=== PATIENT | female | born 1935 | race Caucasian/White ===

== ENCOUNTER 2017-01-06 14:46 | Emergency (ER) | payer OTHER ==
[~2017-01-06] VITALS: Ht 167.6 cm; Wt 61.7 kg
[~2017-01-06 14:46] MED LIST: DICLOFENAC PO; GLUCOVANCE 2.5/1 TA1 PO; LIPITOR PO; LISINOPRIL PO; LISINOPRIL30 MG PO; ZOCOR20 MG PO; [UNRECOGNIZED DRUG - REMARK]
[2017-01-06 17:09] LABS: BASOPHIL# 0.1 X10e3 (0-0.3); BASOPHIL% 0.9 % (0-2.5); EOSINOPHIL# 0.1 X10e3 (0-0.7); EOSINOPHIL% 0.9 % (0.0-7.0); HEMATOCRIT 35.5 % (35.0-45.0); HEMOGLOBIN 11.8 gm/dL (12.0-16.0); LYMPHOCYTE# 0.9 X10e3 (1.0-3.5); LYMPHOCYTE% 16.4 % (17.0-45.0); MEAN CELL VOLUME 92.2 FL (83-96); MEAN CORPUSCULAR HEMOGLOBIN 30.6 PG (28-34); MEAN CORPUSCULAR HGB CONC 33.1 g/dL (30-36); MEAN PLATELET VOLUME 7.4 FL (6.5-11.5); MONOCYTE# 0.5 X10e3 (0-1.0); MONOCYTE% 9.4 % (3.0-12.0); NEUTROPHIL% 72.4 % (40-75); PLATELET COUNT 328 X10e3 (140-420); RED BLOOD COUNT 3.85 X10e (3.90-5.30); RED CELL DISTRIBUTION WIDTH 13.3 % (11.0-15.5); WHITE BLOOD COUNT 5.5 X10e3 (4.0-10.5)
[2017-01-06 17:21] LABS: DIFF IND NO
[2017-01-06 17:29] LABS: ALBUMIN SERUM 3.8 g/dL (3.5-5.0); BILIRUBIN,TOTAL 0.3 mg/dL (0.2-2.0); BUN/CREATININE RATIO 26.92; CALCIUM SERUM 9.3 mg/dL (8.4-10.2); CREATININE SERUM 1.3 mg/dL (0.6-1.4); GLOM FILT RATE Estimated 38.7 mL/min (>60); POTASSIUM 4.2 mmol/L (3.5-5.1); PROTEIN TOTAL SERUM 6.8 g/dL (6.0-8.3)
== END 2017-01-06 18:42 | disposition home or self-care (01) ==
LOC: CED 14:46
PROVIDERS: Emergency Medicine
DX: S50.312A Abrasion of left elbow, initial encounter (principal); E11.65 Type 2 diabetes mellitus with hyperglycemia; W01.0XXA Fall on same level from slipping, tripping and stumbling without subsequent striking against object, initial encounter; Y92.9 Unspecified place or not applicable
CPT/HCPCS: 36415; 80053; 85025; 99283

== ENCOUNTER 2017-01-30 12:31 | Observation (INO) | payer OTHER ==
[~2017-01-30] VITALS: Ht 162.6 cm; Wt 49.0 kg
--- NOTE | ~2017-01-30 | EKG ---
PATIENT: BO MALCOLM UNIT #: [id number] Ventricular Rate: 72 BPM Atrial Rate: 72 BPM P-R Interval: 170 ms QRS Duration: 70 ms Q-T Interval: 384 ms QTC Calculation(Bezet): 420 ms P [place]: -17 degrees Calculated R [place]: -20 degrees Calculated T [place]: 33 degrees Diagnosis Line: Normal sinus rhythm Diagnosis Line: Normal ECG Diagnosis Line: When compared with ECG of 04-JUL-2014 21:38, Diagnosis Line: Nonspecific T wave abnormality no longer evident Diagnosis Line: in Lateral leads Diagnosis Line: Confirmed by JUSTIN CHAMPAGNE MD ([id number]) on 02/01/2017 Diagnosis Line: 2:52:30 PM INTERPRETING MD: HISAN MORRISON
--- NOTE | ~2017-01-30 | A ---
[facility] Nutrition Therapy DATE: 01/31/17 Patient: BO MALCOLM Physician: ABDI Address: [address] Room/Bed: [address] [place] [address], Zip: [place] [address] Admit Date: 01/30/17 Date of : 37 Height: 5 4 Weight: 108 49 NUTRITIONAL ASSESSMENT: REASON: LOW BMI PT IS 81 Y.O. FEMALE ADMITTED FOR WEAKNESS, FREQUENT FALLS PMH: DM, HTN, HLD Anthropometrics: 5'6" (PER RD OBSERVATION), WT: 108# (49 KG), BMI: 17.4, 83%IBW Labs: GLU: 121, BUN: 49, A1c: 6.2 (2011), GFR: 38.7 Meds: NOVOLOG, NACL I/O & Bowel function: NOT AVAILABLE Skin Integrity: NO KNOWN SKIN ISSUES; DRY SKIN NOTED ALL OVER BODY Estimated Nutrition Needs: INCREASED NEEDS 2' PT UNDERWEIGHT, FAIR PO INTAKE AND APPETITE, WEIGHT LOSS NOTED Assessment: CHART REVIEWED AND EVENTS NOTED. PT SEEN FOR LOW BMI (UNDERWEIGHT STATUS). PT ANXIOUS AND SLIGHTLY CONFUSED AT TIME OF VISIT REPORTING "EATING WELL IN-HOUSE" BUT ADDS DECREASED PO INTAKE AND APPETITE AT HOME. PER RN AND CHART, PT FOUND W/FECES AND BEDBUGS PRIOR TO ADMISSION (?HOME SITUATION). PT REPORTS WEIGHT LOSS BUT UNABLE TO KNOW AMOUNT AND TIME FRAME (PER [employer], PT WEIGHED ~136# IN DECEMBER 2016?). THIS RD ENCOURAGED ADEQUATE KCAL AND PROTEIN INTAKE, PT AGREED TO GLUCERNA SHAKE & ENSURE PUDDING DAILY. PT REPORTED NO DIET QUESTIONS AT THIS TIME. RD TO FOLLOW. SEE RECOMMENDATIONS BELOW. Dx: UNDERWEIGHT R/T DECREASED PO INTAKE/APPETITE, HOME SITUATION, LIFESTYLE AEB BMI OF 17.4, 83%IBW, WEIGHT LOSS NOTED. Intervention: 1. HEALTHY HEART DIET 2. GLUCERNA SHAKE W/LUNCH 3. ENSURE PUDDING W/DINNER Monitoring, Evaluation and Goals: 1. ORAL INTAKE; CONSUME/TOLERATE >50% OF MEALS AND SUPPLEMENTS 2. WEIGHTS; PROMOTE GRADUAL WEIGHT GAIN TOWARDS HEALTHY BMI; PREVENT FURTHER WEIGHT LOSS 3. LABS; GLU, BUN MONITOR: -PO INTAKE/APPETITE -WEIGHTS [facility] Nutrition Therapy DATE: 01/31/17 Patient: BO MALCOLM Physician: ABDI Address: [address] Room/Bed: [address] [place] [address], Zip: [place] [address] Admit Date: 01/30/17 Date of : 37 Height: 5 4 Weight: 108 49 -SUPPLEMENT INTAKE Recommendations: 1. PLEASE ORDER KAREN GLUCERNA SHAKE W/LUNCH MEAL DAILY 2. PLEASE ORDER KAREN ENSURE PUDDING W/DINNER MEAL DAILY 3. APPRECIATE FAMILY AND STAFF TO ENCOURAGE ADEQUATE PO INTAKE. PROVIDE ASSISTANCE W/ORDERING MEALS NEEDED -CHANGE DIET TO REGULAR, IF PT CONSUMES LESS THAN 50% OF MEALS 4. RECOMMEND TO CONSULT METROLOGY ENGINEER FOR HOME SITUATION RD WILL F/U PER PROTOCOL PT IS MODERATELY COMPROMISED Respectfully, JUAN CARLOS CARTWRIGHT MS, RD, LD [employer] [facility] [employer] cc: client file
--- NOTE | ~2017-01-30 | CR72 ---
[facility] A Service of [facility] RADIOLOGY TEXT RESULTS PATIENT: BO MALCOLM LOCATION: [facility] [id number] : 36 UNIT #: [id number] AGE: [address]: Yue Juan MD SEX: F ORDER DR: [id number] [facility] [address] [place], [place] [address] [id number] MR#: [id number] Acc #: [id number] NAME: BO MALCOLM : 1935 SEX: F STUDY DATE/TIME: 01/30/2017 14:46 UNIT: [id number] ROOM: [facility] STUDY DESCRIPTION: CR Chest Single View Portable Attending Physician: Marta Welch M.D. Ordering Physician: Jose Armando Latham M.D. Primary Care Physician: Judith Laureano A.P.R.N. MEDICAL IMAGING REPORT This report is preliminary unless electronic signature is present EXAM Portable chest x-ray 01/30/2017 HISTORY Recent fall, weakness. FINDINGS AP right anterior oblique view of the chest is presented. Comparison 07/04/2014. Mild dextroscoliosis centered at mid thoracic spine slightly more pronounced than on prior study. Heart and mediastinum normal in size and contour given obliquity. The lungs are well inflated. Multiple bilateral densely calcified granulomata unchanged. There is no indication of acute infectious or inflammatory disease, pleural effusion or pneumothorax. There is no suspicious nodule. Complete fracture anterolateral left seventh rib. Distal fracture fragment displaced laterally by about 3 mm. No other definite acute fractures seen on these images. IMPRESSION 1. There is a complete transverse fracture of the anterolateral left seventh rib. The distal fracture fragment is displaced laterally by about 3 mm. No other definite acute bony abnormality is seen. There are degenerative changes in the spine and there is mild dextroscoliosis centered at the mid thoracic spine slightly more pronounced than in 2015. 2. Heart and mediastinum normal in size and contour. 3. The lungs are well inflated without acute abnormality. Multiple bilateral calcified granulomata are stable. No pleural effusion. No pneumothorax. Dictated by... [facility] A Service of [facility] RADIOLOGY TEXT RESULTS PATIENT: BO MALCOLM LOCATION: [place] [address] : 37 UNIT #: [id number] AGE: [address]: Yue Juan MD SEX: F ORDER DR: Cory Griggs M.D. THIS IS AN ELECTRONICALLY VERIFIED REPORT Cory Griggs M.D. at 02/02/2017 5:45 PM GEORGIANA/lukas TD: 01/31/2017 03:11 JOB #: [id number] MEDICAL IMAGING REPORT Page 1 of 1 COPY
--- NOTE | ~2017-01-30 | HP ---
Unit #: [id number] #: [id number] Patient: BO MALCOLM [id number] [address] [place], [place] [address] [id number] I MR#: [id number] NAME: BO MALCOLM ROOM: 321 Age: 81 Sex: F Admission Date: 01/30/2017 : 1935 Attending Physician: Aaron Welch M.D. Primary Care Physician: Judith Laureano A.P.R.N. HISTORY AND PHYSICAL CHIEF COMPLAINT Weakness. HISTORY OF PRESENT ILLNESS The patient is an 81-year-old female with a history of diabetes and hypertension, brought to the emergency room by APS for the weakness. The patient lives with her grandson and granddaughter. The patient's has been recently admitted to the custodial. The patient stated that the patient has been feeling weak and has recurrent falls. The patient's neighbors called the EMS for the questionable neglect. The EMS called APS because the patient was found in the feces and with the bedbugs and the APS brought to the emergency room for the further evaluation. The patient was found to be very dehydrated and with the weakness and was found to be with the bedbugs. The patient is being admitted for the above reasons. The patient is a poor historian and the history is obtained by speaking to the ER physician and the RN at the bedside. No further history is available. PAST MEDICAL HISTORY History of diabetes mellitus, hypertension, hyperlipidemia. PAST SURGICAL HISTORY C-sections and cataract extraction. ALLERGIES No known drug allergies. HOME MEDICATION From the records the patient has been on lisinopril and the glipizide and Zocor and Claritin. FAMILY HISTORY Positive for diabetes mellitus. SOCIAL HISTORY The patient lives with her grandkids. She is a lifelong nonsmoker and does not drink alcohol. REVIEW OF SYMPTOMS Unable to obtain as the patient is not able to provide any history other than complaining of the recurrent falls and the weakness and the patient stated that the patient had a fall at home. Unit #: [id number] #: [id number] Patient: BO MALCOLM PHYSICAL EXAMINATION GENERAL APPEARANCE: On examination the patient is lying on a bed, not in acute distress. VITAL SIGNS: Temperature is 97.6, pulse 84, respiratory rate 18, blood pressure 135/113, sating 99% at room air. HEENT: Head atraumatic and normocephalic. Pupils equal, round and reacting to light and accommodation. Dry mucous membrane. NECK: Supple. LUNGS: Decreased air entry at the bases. HEART: Regular rate and rhythm. ABDOMEN: Soft, positive bowel sounds. EXTREMITIES: Weakness. DIAGNOSTIC STUDIES LABORATORY DATA: WBC is 7.8, hemoglobin is 10.9, hematocrit 32.3, platelet is 283, troponin less than 0.05, sodium 137, potassium 4.7, chloride 104, bicarb 26, glucose 152, BUN 52, creatinine 1, AST 24, ALT 14, alkaline phosphatase 83, albumin is 4 and UA shows trace protein. IMAGING: Chest x-ray shows there is a complete transverse fracture of the anterolateral left seventh rib. No consolidations or infiltrates or effusions. ASSESSMENT 1. Weakness. 2. Recurrent fall. 3. Left rib fracture. PLAN 1. Plan to admit the patient to the observation. 2. Continue the supportive care. 3. Continue with the sliding scale and resume the home medications. 4. The patient will be seen by the OT/PT and the case management. 5. Further recommendations will follow as more lab results are available. Dictated by Emir Pardo TD: 01/30/2017 23:04 JOB #: [id number] HISTORY AND PHYSICAL Page 1 of 1 X AARON WELCH MD X HISTORY AND PHYSICAL
--- NOTE | ~2017-01-30 | DS ---
Unit #: [id number] #: [id number] Patient: BO MALCOLM [id number] [address] [address] [id number] I MR#: [id number] NAME: BO MALCOLM ROOM: [facility] Age: 81 Sex: F Admission Date: 01/30/2017 : 1935 Discharge Date: Attending Physician: Yue Juan M.D. Primary Care Physician: Kavin RennerP.RAzalia DISCHARGE SUMMARY DISCHARGE DIAGNOSES 1. Fever, likely from atelectasis from rib fracture. 2. Status post recurrent fall. 3. Left rib fracture. 4. Weakness. 5. Diabetes mellitus type 2, uncontrolled. 6. Hypertension. 7. Hyperlipidemia. 8. Acute kidney injury. 9. Vitamin B12 deficiency. CONSULTATIONS None. PROCEDURES None. DIAGNOSTIC TESTING LAB DATA: Glucose 133. Blood culture negative. WBC 6.5, hemoglobin 8.8, platelets 235. Vitamin B12 level is 105. TSH 0.72. IMAGING: Chest x-ray shows complete transverse fracture of the anterolateral left 7th rib. Distal fragment is displaced laterally about 3 mm. No other definite acute findings. ALLERGIES None. DISCHARGE MEDICATIONS 1. Tylenol 650 q.6 p.r.n. pain. 2. Colace 100 p.o. daily. 3. NovoLog low-dose sliding scale a.c. and h.s. 4. Ferrous gluconate 324 p.o. daily. 5. Vitamin B12 - 1,000 mcg subcu every daily. HOSPITALIZATION COURSE An 81 year old admitted because of fall and generalized weakness. Fever x1, likely from atelectasis from rib fracture. Fall with 7th rib fracture with generalized weakness. Patient seen by physical therapy. They recommend rehab. Patient will be discharged to rehab. Continue with Tylenol for pain for rib fracture. Unit #: [id number] #: [id number] Patient: BO MALCOLM Acute kidney injury on admission. Mild. Patient received IV fluids. Vitamin B12 deficiency. Patient was given B12 injections. DISCHARGE PLAN The patient will be discharged to rehab. Dictated by... Emir Elizalde TD: 02/03/2017 14:14 JOB #: [id number] DISCHARGE SUMMARY Page 1 of 1 X Yue Juan MD DISCHARGE SUMMARY
[2017-01-30 14:34] LABS: BASOPHIL# 0.1 X10e3 (0-0.3); BASOPHIL% 0.6 % (0-2.5); EOSINOPHIL# 0.2 X10e3 (0-0.7); EOSINOPHIL% 2.1 % (0.0-7.0); HEMATOCRIT 32.3 % (35.0-45.0); HEMOGLOBIN 10.9 gm/dL (12.0-16.0); LYMPHOCYTE# 1.4 X10e3 (1.0-3.5); LYMPHOCYTE% 17.9 % (17.0-45.0); MEAN CELL VOLUME 93.2 FL (83-96); MEAN CORPUSCULAR HEMOGLOBIN 31.5 PG (28-34); MEAN CORPUSCULAR HGB CONC 33.8 g/dL (30-36); MEAN PLATELET VOLUME 6.9 FL (6.5-11.5); MONOCYTE# 0.7 X10e3 (0-1.0); MONOCYTE% 8.7 % (3.0-12.0); NEUTROPHIL# 5.5 X10e3 (1.5-7.1); NEUTROPHIL% 70.7 % (40-75); PLATELET COUNT 283 X10e3 (140-420); RED BLOOD COUNT 3.47 X10e (3.90-5.30); RED CELL DISTRIBUTION WIDTH 13.1 % (11.0-15.5); WHITE BLOOD COUNT 7.8 X10e3 (4.0-10.5)
[2017-01-30 14:39] LABS: DIFF IND NO
[2017-01-30 15:02] LABS: ALKALINE PHOSPHATASE 83 U/L (32-92); ALT (SGPT) 14 U/L (10-40); AST (SGOT) 24 U/L (10-42); BILIRUBIN,TOTAL 0.4 mg/dL (0.2-2.0); BLOOD UREA NITROGEN 52 mg/dL (9-23); CALCIUM SERUM 8.9 mg/dL (8.4-10.2); CARBON DIOXIDE 26 mmol/L (22-31); CHLORIDE 104 mmol/L (100-111); GLOM FILT RATE Estimated 53.2 mL/min (>60); GLUCOSE FASTING 152 mg/dL (70-110); POTASSIUM 4.7 mmol/L (3.5-5.1); SODIUM 137 mmol/L (135-145)
[2017-01-30 15:05] LABS: POC - CKMB 1.3 ng/mL (0.0-7.9); POC - TROPONIN <0.05 ng/mL (<=0.05)
[2017-01-30 15:07] LABS: BILIRUBIN, DIRECT <0.1 mg/dL (0.0-0.2); BILIRUBIN,INDIRECT 0.3 mg/dL (0.0-0.9)
[2017-01-30 15:47] LABS: URINE SOURCE CLEAN CATCH
[2017-01-30 15:55] LABS: URINE APPEARANCE CLEAR; URINE BILIRUBIN NEG (NEG); URINE BLOOD NEG (NEG); URINE COLOR YELLOW; URINE GLUCOSE NEG (NEG); URINE KETONE NEG (NEG); URINE LEUKOCYTE ESTERASE NEG (NEG); URINE NITRATE NEG (NEG); URINE PROTEIN TRACE (NEG); URINE SPECIFIC GRAVITY 1.025 (1.003-1.035); URINE UROBILINOGEN 0.2 MG/DL (NEG)
[2017-01-30 16:02] LABS: CULTURE INDICATED? NO
[2017-01-31 05:32] LABS: HEMATOCRIT 25.7 % (35.0-45.0); MEAN CELL VOLUME 92.2 FL (83-96); MEAN CORPUSCULAR HEMOGLOBIN 31.9 PG (28-34); MEAN CORPUSCULAR HGB CONC 34.6 g/dL (30-36); MEAN PLATELET VOLUME 7.4 FL (6.5-11.5); RED BLOOD COUNT 2.79 X10e (3.90-5.30); RED CELL DISTRIBUTION WIDTH 13.4 % (11.0-15.5); WHITE BLOOD COUNT 6.8 X10e3 (4.0-10.5)
[2017-01-31 05:58] LABS: HEMOGLOBIN 8.9 gm/dL (12.0-16.0)
[2017-01-31 06:25] LABS: BUN/CREATININE RATIO 37.69; CALCIUM SERUM 8.4 mg/dL (8.4-10.2); CREATININE SERUM 1.3 mg/dL (0.6-1.4); GLOM FILT RATE Estimated 38.7 mL/min (>60); POTASSIUM 4.6 mmol/L (3.5-5.1)
[2017-01-31 12:24] LABS: IRON SERUM 30 ug/dL (28-170); TOTAL IRON BINDING CAPACITY 293 ug/dL (269-535); TRANSFERRIN 209 mg/dL (192-382); TRANSFERRIN SATURATION 10 % (20-50)
[2017-02-01 02:53] LABS: HEMATOCRIT 26.2 % (35.0-45.0); HEMOGLOBIN 8.8 gm/dL (12.0-16.0); MEAN CELL VOLUME 93.2 FL (83-96); MEAN CORPUSCULAR HEMOGLOBIN 31.3 PG (28-34); MEAN CORPUSCULAR HGB CONC 33.6 g/dL (30-36); MEAN PLATELET VOLUME 7.5 FL (6.5-11.5); RED BLOOD COUNT 2.81 X10e (3.90-5.30); RED CELL DISTRIBUTION WIDTH 13.5 % (11.0-15.5); WHITE BLOOD COUNT 6.5 X10e3 (4.0-10.5)
[2017-02-01 03:16] LABS: CALCIUM SERUM 8.1 mg/dL (8.4-10.2); GLOM FILT RATE Estimated 53.2 mL/min (>60); PHOSPHOROUS 2.8 mg/dL (2.5-4.6); POTASSIUM 4.6 mmol/L (3.5-5.1); PREALBUMIN 19.8 mg/dL (17.0-42.0)
== END 2017-02-04 10:48 ==
LOC: CED 12:31 → CEDOF 18:39 → CED 18:39 → C4C 18:39 → CEDOF 19:05 → CED 19:05 → C3A PCU 20:44 → CEDOF 20:44 → C3A PCU 01-31 05:27 → C4C 01-31 17:45 → C3A PCU 01-31 17:45 → C4C 02-02 12:09
PROVIDERS: Emergency Medicine; Internal Medicine
DX: R50.9 Fever, unspecified (principal); S22.32XA Fracture of one rib, left side, initial encounter for closed fracture; E11.65 Type 2 diabetes mellitus with hyperglycemia; I10 Essential (primary) hypertension; E78.5 Hyperlipidemia, unspecified; N17.9 Acute kidney failure, unspecified; D51.9 Vitamin B12 deficiency anemia, unspecified; D50.9 Iron deficiency anemia, unspecified; F03.90 Unspecified dementia, unspecified severity, without behavioral disturbance, psychotic disturbance, mood disturbance, and anxiety; Z79.899 Other long term (current) drug therapy; W19.XXXA Unspecified fall, initial encounter
CPT/HCPCS: 36415; 71010; 80048; 80076; 81003; 82553; 82607; 82947; 83540; 83550; 83735; 84100; 84134; 84443; 84484; 85025; 85027; 87040; 93005; 94760; 96372; 97110; 97116; 97162; 97166; 97530; 97535; 99285; G0378; G8978-GP; G8979-GP; G8987-GO; G8988-GO; J1650; J1815; J3420